=== PATIENT | female | born 2000 ===

== ENCOUNTER 2023-08-01 13:16 | Emergency (ER) | payer MEDICAID, SELFPAY ==
[2023-08-01 13:27] VITALS: BP 118/78; PULSE 72; RESP 16; TEMP 36.3; O2SAT 98; BMI 36.2
--- NOTE | 2023-08-01 13:29 | ED_ITS ---
HPI - General Adult General Chief complaint: Abdominal Pain Stated complaint: Abdominal pain Time Seen by Provider: 08/01/23 16:40 Source: patient, RN notes reviewed and old records reviewed Mode of arrival: ambulatory History of Present Illness HPI narrative: 22-year-old female with past medical history appendectomy presenting to the ED complaining of lower abdominal pain x3 days. Denies fever, chills, nausea, vomiting, diarrhea, dysuria/hematuria, vaginal bleeding/discharge Related Data Allergies Allergy/AdvReac Type Severity Reaction Status Date / Time No Known Allergies Allergy Verified 08/01/23 13:26 Review of Systems 2 Review of Systems: Constitutional: No Fever, No Chills ENT/Mouth: No Ear Pain, No Nasal Congestion, No sore throat, No Rhinorrhea, No Swallowing Difficulty Cardiovascular: No Chest Pain, No SOB Respiratory: No Cough, No Sputum, No Wheezing Gastrointestinal: No Nausea, No Vomiting, No Diarrhea, No Constipation, +Abdominal pain Genitourinary: No Dysuria, No Urinary Frequency, No Hematuria, No Flank Pain Musculoskeletal: No joint pain, No Myalgias Skin: No Skin Lesions, No rash Neuro: No Weakness Yes all other systems are reviewed and are negative Constitutional: Constitutional: Reports as per [facility] Past Medical History Attestation statement: The following information was validated with the patient. Source: old records reviewed Social History Social History Advance Directives: No Advance Directives Information Provided: No Physical Exam ED Vital Signs: Vital Signs - 24 hr 08/01/23 13:27 Temperature 97.4 F Pulse Rate 72 Respiratory Rate 16 Blood Pressure 118/78 Pulse Oximetry 98 Oxygen Delivery Method Room Air BMI result Body Mass Index 36.2 Const General: cooperative, healthy appearing and no acute distress Orientation/consciousness: patient oriented x3 Limitations: no limitations HENMT Head: Yes normal to inspection and Yes atraumatic Ears: hearing grossly normal bilaterally General nose exam: Normal external nose present Face and sinus: Yes normal facial exam Eyes General: appearance normal, both eyes and all related structures EOM: EOMs intact bilaterally Neck Neck: Yes normal visual inspection and Yes no meningeal signs Resp Effort & Inspection: normal respiratory effort and no respiratory distress Cardio Rate: regular rate GI Inspection: Yes normal to inspection Palpation (GI): Soft to palpation, nontender, no guarding and not rigid General: Yes no CVA tenderness Back/Spine/Pelvis Back: no CVA tenderness Skin Rashes: no rashes Wounds: no wounds Neuro General: patient oriented x3, tone normal and no meningeal signs Cranial nerves: Yes CN's II-XII intact bilaterally Gait exam (Neuro): Normal gait present Extrem General: Yes normal to inspection Course Course Course Narrative: RME- 22 year old female presents for evaluation of lower abdominal pain for the last 3 days. Plan for labs, UA and -[id number]--no leukocytosis. Labs otherwise reassuring. negative. -UA contaminated, will hold on antibiotic initiation at this time until culture results. Results discussed with patient including worrisome signs and symptoms and strict return precautions, recommended GI/PCP follow-up, discussed when to return to the emergency department. They verbalized understanding and feel safe for discharge at this time. Medical Decision Making Medical Decision Making [facility] Narrative: 22-year-old female with past medical history appendectomy presenting to the ED complaining of lower abdominal pain x3 days. On exam vital signs stable, NAD, nontoxic appearing, abdomen soft/nontender. Concern for UTI vs colitis. Lower suspicion for acute diverticulitis without tenderness on exam. Unlikely TOA/ovarian torsion. Rule out . Low suspicion for pancreatitis/cholecystitis/lithiasis Plan: Labs, UA Differential Diagnosis Differential Diagnoses: The differential diagnosis associated with the presentation includes As above Lab Data [facility] Lab Attestation statement: I reviewed the patient's lab results. 08/01/23 13:40 08/01/23 13:40 Labs: Lab Results 08/01/23 08/01/23 Range/Units 13:40 16:59 WBC 7.3 (4.8-10.8) X10*3/uL RBC 4.49 (4.20-5.50) X10*6/uL Hgb 12.6 (12.0-16.0) g/dl Hct 38.6 (37.0-47.0) % MCV 86.0 (80.0-98.0) fL MCH 28.1 (27.0-33.0) pg MCHC 32.6 (31.0-35.0) g/dl RDW 14.1 (11.0-16.0) % Plt Count 307 (160-400) X10*3/uL MPV 8.6 L (9.4-12.3) fL Immature Gran % (Auto) 0.3 (0.0-0.4) % Neut % (Auto) 59.7 (45-73) % Lymph % (Auto) 32.9 (20-40) % [place] % (Auto) 4.7 (2-11) % Eos % (Auto) 2.3 (0-4) % Baso % (Auto) 0.1 (0-2) % Lymph # (Auto) 2.4 (1.2-4.9) X10*3/uL [place] # (Auto) 0.3 (0.1-1.2) X10*3/uL Eos # (Auto) 0.2 (0.0-0.4) X10*3/uL Baso # (Auto) 0.0 (0.0-0.2) X10*3/uL Abs Immat Gran (auto) 0.02 (0.00-0.03) X10*3/uL Absolute Neuts (auto) 4.4 (2.0-8.3) x10*3/uL Absolute Nucleated RBC 0.000 (0.0-0.012) X10*3/uL Nucleated RBC % (auto) 0.0 (0.0-0.2) /100WBC Sodium 139 (135-145) mmol/L Potassium 3.7 (3.3-5.1) mmol/L Chloride 108 (96-108) mmol/L Carbon Dioxide 26 (22-29) mmol/L Anion Gap 9 L (12-20) BUN 8 L (9-16) mg/dL Creatinine 0.67 (0.5-1.4) mg/dL Estim Creat Clear Calc 124.4 Estimated GFR > 60 Random Glucose 88 (60-115) mg/dL Calcium 8.7 (8.4-10.2) mg/dL Magnesium 2.0 (1.6-2.6) mg/dL Total Bilirubin 0.3 (0.0-1.0) mg/dL Direct Bilirubin 0.1 (0.0-0.5) mg/dL AST 14 (5-31) U/L ALT 13 (0-31) U/L Alkaline Phosphatase 77 (39-117) U/L Total Protein 7.7 (6.5-8.0) g/dL Albumin 4.0 (3.5-5.0) g/dL Lipase 14 (8-78) U/L Beta HCG, Quant < 2 mIU/mL Urine Color Yellow Urine Appearance Cloudy Urine pH 8.0 (5.0-9.0) Ur Specific [place] 1.025 (1.005-1.025) Urine Protein Negative (Neg-Trace) mg/dL Urine Glucose (UA) Negative (Negative) mg/dL Urine Ketones Negative (Negative) mg/dL Urine Blood Negative (Negative) Urine Nitrite Negative (Negative) Ur Leukocyte Esterase Moderate (2+) H (Negative) Urine RBC 0-2 (0-2) /HPF Urine WBC 6-10 H (0-5) /HPF Ur Squamous Epith Cells >20 (0-2) /HPF Urine Bacteria 4+ (None Seen) Hyaline Casts 0-2 (0-2) /LPF External Record Review External record reviewed: Inpatient record, Office record, Outpatient record, Prior outpatient labs, Prior outpatient radiology, Primary care record and Outside ED record Tests considered The following testing was considered but not selected: As above Prescription Management I considered prescription management with: Pain Medication Discharge Plan Discharge Clinical Impression: Lower abdominal pain Patient Disposition: Home, Self-Care Instructions: Abdominal Pain (ED) Additional Instructions: Your blood work and urine are reassuring. Please follow-up with your doctor as well as Gastroenterology If symptoms persist or worsen her pain is unbearable, you have nausea/vomiting or fever return to the ED [place] an?lisis de reji y orina son tranquilizadores. Por favor zoila seguimiento con la m?dico as? elise con Gastroenterolog?a. Si los s?ntomas persisten o empeoran, la dolor es insoportable, tiene n?useas/v?mitos o fiebre, regrese al servicio de urgencias. Referrals: [facility] [place] [facility] [Provider Group] [facility] [place] [facility] [place] Group[place] [facility] [place] [facility] [place]Provider Group] Interventions: ED Discharge Assessment Last Done: 08/01/23 17:39 Discharge Date/Time: 08/01/23 17:39 Print Language: Liberian
[2023-08-01 13:45] LABS: MANUAL DIFF FLAG NO
[2023-08-01 13:53] LABS: Basophils Percent Auto 0.1 % (0-2); Eosinophils Absolute Auto 0.2 X10*3/uL (0.0-0.4); Eosinophils Percent Auto 2.3 % (0-4); Hematocrit 38.6 % (37.0-47.0); Hemoglobin 12.6 g/dl (12.0-16.0); Imm Gran Abs Auto 0.02 X10*3/uL (0.00-0.03); Imm Gran Pct Auto 0.3 % (0.0-0.4); Lymphocytes Absolute Auto 2.4 X10*3/uL (1.2-4.9); Lymphocytes Percent Auto 32.9 % (20-40); Mean Corpuscular HGB Conc 32.6 g/dl (31.0-35.0); Mean Corpuscular Hemoglobin 28.1 pg (27.0-33.0); Mean Platelet Volume 8.6 fL (9.4-12.3); Monocytes Absolute Auto 0.3 X10*3/uL (0.1-1.2); Monocytes Percent Auto 4.7 % (2-11); Neutrophils Absolute Auto 4.4 x10*3/uL (2.0-8.3); Neutrophils Percent Auto 59.7 % (45-73); Platelet Count 307 X10*3/uL (160-400); Red Blood Count 4.49 X10*6/uL (4.20-5.50); Red Cell Distribution Width 14.1 % (11.0-16.0); White Blood Count 7.3 X10*3/uL (4.8-10.8)
[2023-08-01 13:57] LABS: Anion Gap 9 (12-20); Blood Urea Nitrogen 8 mg/dL (9-16); Calcium 8.7 mg/dL (8.4-10.2); Carbon Dioxide 26 mmol/L (22-29); Chloride 108 mmol/L (96-108); Creatinine Clr Calc Pharmacy 124.4; Estimated Glomerular Filt Rate > 60; Glucose Random 88 mg/dL (60-115); Potassium 3.7 mmol/L (3.3-5.1); Sodium 139 mmol/L (135-145)
[2023-08-01 14:06] LABS: HCG Quantitative < 2 mIU/mL
[2023-08-01 17:01] LABS: Alanine Aminotransferase 13 U/L (0-31); Alkaline Phosphatase 77 U/L (39-117); Aspartate Amino Transferase 14 U/L (5-31); Bilirubin Direct 0.1 mg/dL (0.0-0.5); Bilirubin Total 0.3 mg/dL (0.0-1.0); Lipase 14 U/L (8-78); Total Protein 7.7 g/dL (6.5-8.0)
[2023-08-01 17:10] LABS: Appearance Urine Cloudy; Color Urine Yellow; Glucose Urine UA Negative (Negative); Leukocyte Esterase Urine Moderate (2+) (Negative); Nitrite Urine Negative (Negative); Specific Gravity - Urine 1.025 (1.005-1.025); UMIC TRIGGER UACC YES; Urine Blood Negative (Negative); Urine Ketones Negative (Negative); Urine Protein Negative (Neg-Trace)
[2023-08-01 17:16] LABS: Bacteria Urine 4+ (None Seen); Hyaline Casts Urine 0-2 /LPF (0-2); RBC Urine 0-2 /HPF (0-2); Squamous Epithelial Cell Urine >20 /HPF (0-2); UACC Culture Trigger YES
== END 2023-08-01 17:39 | disposition home or self-care (01) ==
PROVIDERS: Physician Assistant; Emergency Provider Emergency Medicine Emergency Medical Services
DX: R10.30 Lower abdominal pain, unspecified (principal)
CPT/HCPCS: 36415; 80048; 80076; 81001; 83690; 83735; 84702; 85025; 87086; 99283; 99284

== ENCOUNTER 2023-08-10 17:12 | Emergency (ER) | payer MEDICAID, OTHER, SELFPAY ==
[2023-08-10 17:15] VITALS: BP 103/61; PULSE 77; RESP 18; TEMP 35.9; O2SAT 96; BMI 30.9
--- NOTE | 2023-08-10 17:17 | ED_ITS ---
HPI - Allergic Reaction General Chief complaint: Allergic Reaction Stated complaint: ?Allergic reaction Time Seen by Provider: 08/10/23 17:27 History of Present Illness HPI narrative: The patient is an ordinarily healthy 22-year-old who says that this morning she had a sense of itchiness to her face and also to her extremities to some degree. Over the course of the day she is developed increasing swelling to her lips and the skin of her face. Some mild shortness of breath. She finally came to the emergency room because of the degree of lip swelling. She has never had anything like this before. She has on no prescription medications. 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 Yesterday she was cleaning somebody's house who does not like any chemicals to be used. She was not exposed to any substances that she is not normally used to working with. She denies any new household products. She has never had any kind of reaction to anything like this before. Related Data Previous Rx's Medication Instructions Recorded cetirizine 10 mg tablet 10 mg PO DAILY PRN allergy 08/10/23 symptoms #7 tabs prednisone 20 mg tablet 40 mg (2 x 20 mg) PO DAILY 2 days 08/10/23 #4 tabs Allergies Allergy/AdvReac Type Severity Reaction Status Date / Time No Known Allergies Allergy Verified 08/10/23 17:17 Review of Systems Review of Systems: Yes all other systems are reviewed and are negative [facility] Social History Social History Smoked in Last 30 Days: No Use of substances other than those prescribed or required for medical reasons: No Advance Directives: No Advance Directives Information Provided: No Physical Exam ED Vital Signs: Vital Signs - 24 hr 08/10/23 17:15 08/10/23 18:00 08/10/23 18:15 Temperature 96.6 F L 98.7 F Pulse Rate 77 70 Respiratory Rate 18 Blood Pressure 103/61 125/72 Pulse Oximetry 96 Oxygen Delivery Method Room Air 08/10/23 19:10 Temperature 98.5 F Pulse Rate 77 Respiratory Rate 16 Blood Pressure 140/84 H Pulse Oximetry 96 Oxygen Delivery Method Room Air BMI result Body Mass Index 30.9 Const Other: The patient is awake and alert. She has obvious significant edema to both lips and some mild generalized facial edema. She does not seem in any distress or difficulty breathing. HENMT Other: Significant swelling to both the upper and lower lips. Some mild generalized facial swelling. No significant erythema or hives. No intraoral swelling. The posterior pharynx is normal. Eyes Other: The eyelids are not swollen. Pupils are round equal. Conjunctivae are clear. Neck Other: No stridor Resp Effort & Inspection: normal respiratory effort Auscultation: clear to auscultation bilaterally Cardio Rate: regular rate Rhythm: regular rhythm Heart sounds: S1 normal heart sound present and S2 normal heart sound present Skin Other: There is some mild generalized swelling to the lower face. The lips are significantly edematous. The lips are symmetrical. Some minimal hives to the right hand. Neuro Other: The patient is awake, alert, appropriate, grossly neurologically intact. Extrem Other: Very mild urticaria to the right arm. No significant soft tissue swelling to the extremities. Course Course Course Narrative: This is an RME: Additional HPI, ROS, PE not included below will be deferred to primary provider. Patient is a 22 old female who presents emergency department with concern for allergic reaction. She states that she awoke this morning with swelling to her lips and an itching sensation that is progressively worsened throughout the day. No relief with application of ice. Has shortness of breath with this. Denies any known allergies, foods, facial products, injection. She did not take any medications at home. Exam: Angioedema, managing secretions, speaking clear full sentences, no respiratory distress. Onset earlier today with progressive worsening, spoke with admission discharge rn, patient moved to room ED 2. Medications Administered Discontinued Medications Generic Name Dose Route Start Last Admin Trade Name Bar PRN Reason Stop Dose Admin Diphenhydramine HCl 50 mg 08/10/23 17:22 08/10/23 17:29 Diphenhydramine Hcl 50 Mg/Ml Vial IVPUSH 08/10/23 17:23 Not Given ONCE ONE Diphenhydramine HCl 50 mg 08/10/23 17:29 08/10/23 17:35 Diphenhydramine Hcl 25 Mg Capsule PO 08/10/23 17:30 50 mg ONCE ONE Administration Epinephrine 0.3 mg 08/10/23 18:04 08/10/23 18:15 Epinephrine 1 Mg/Ml Vial IM 08/10/23 18:05 0.3 mg STAT STA Administration Famotidine 20 mg 08/10/23 17:22 08/10/23 17:29 Famotidine/Pf 20 Mg/2 Ml Vial IVPUSH 08/10/23 17:23 Not Given ONCE ONE Famotidine 40 mg 08/10/23 17:29 08/10/23 17:35 Famotidine 20 Mg Tablet PO 08/10/23 17:30 40 mg ONCE ONE Administration Sodium Chloride 1,000 mls @ 999 mls/hr 08/10/23 17:30 08/10/23 17:33 Ns IV 08/10/23 18:30 Not Given .Q1H1M OZIEL Loratadine 10 mg 08/10/23 20:02 08/10/23 20:27 Loratadine 10 Mg Tablet PO 08/10/23 20:03 10 mg ONCE ONE Administration Methylprednisolone Sodium Succinate 125 mg 08/10/23 17:22 08/10/23 17:28 Methylprednisolone Sod Succ 125 Mg/2 Ml Vial IVPUSH 08/10/23 17:23 Not Given ONCE ONE Prednisone 60 mg 08/10/23 17:29 08/10/23 17:35 Prednisone 20 Mg Tablet PO 08/10/23 17:30 60 mg ONCE ONE Administration Medical Decision Making Medical Decision Making MDM Narrative: The patient presents with what seems to be an allergic reaction characterized primarily by facial edema and itchiness. Her lips are quite swollen. She was treated oral diphenhydramine, famotidine, prednisone, and IM epinephrine. She was observed. She felt better. The patient has no history of similar reactions in the past. Patient can not think of any new exposure that might have predisposed her to an allergic reaction. The patient has [employer] but she does not have a PCP. She has tried to get into the [facility] in the past but there was a long wait. Given the patient's improvement I think she may be discharged. I will prescribe 2 additional days of prednisone 40 mg daily and also a prescription for cetirizine. She should continue trying to get a PCP. She should return if worse. Lab Data Labs: Lab Results 08/10/23 Range/Units 17:35 Beta HCG, Quant < 2 mIU/mL Discharge Plan Discharge Clinical Impression: Allergic reaction Patient Disposition: Home, Self-Care Instructions: General Allergic Reaction (ED) Additional Instructions: Please take the prednisone prescribed daily for the next 2 days. Next dose tomorrow. You may also take cetirizine (brand name Zyrtec) once a day as needed. I have sent a prescription for this medication. If the pharmacy did not fill this prescription you may buy it [id number]. Please continue to work trying to get a primary care doctor at the [facility]. Return to the emergency room if significantly worse.. Prescriptions: New prednisone 20 mg tablet 40 mg PO DAILY 2 Days Qty: 4 0RF cetirizine 10 mg tablet 10 mg PO DAILY PRN (Reason: allergy symptoms) Qty: 7 0RF Referrals: [facility] [Provider Group] (Need for primary care, allergic reaction) Interventions: ED Discharge Assessment Last Done: 08/10/23 20:27 Discharge Date/Time: 08/10/23 20:28
[2023-08-10] MEDS: diphenhydrAMINE HCL 25 MG CAPSULE 50 MG PO (17:35)
[2023-08-10] MEDS: Famotidine 20 MG TABLET 40 MG PO (17:35)
[2023-08-10] MEDS: predniSONE 20 MG TABLET 60 MG PO (17:35)
[2023-08-10 18:00] VITALS: TEMP 37.1
[2023-08-10 18:01] LABS: HCG Quantitative < 2 mIU/mL
[2023-08-10 18:15] VITALS: BP 125/72; PULSE 70
[2023-08-10] MEDS: EPINEPHrine 1 MG/ML VIAL 0.3 MG IM (18:15)
--- NOTE | 2023-08-10 18:18 | PC.NURSE ---
Lips remains swollen, provider aware. medicated per mar
[2023-08-10 19:10] VITALS: BP 140/84; PULSE 77; RESP 16; TEMP 36.9; O2SAT 96
[2023-08-10] MEDS: Loratadine 10 MG TABLET PO (20:27)
== END 2023-08-10 20:28 | disposition home or self-care (01) ==
PROVIDERS: Emergency Provider Emergency Medicine
DX: T78.40XA Allergy, unspecified, initial encounter (principal); L50.9 Urticaria, unspecified; X58.XXXA Exposure to other specified factors, initial encounter; R06.02 Shortness of breath
CPT/HCPCS: 36415; 84702; 96372; 99283; 99284; J0171

== ENCOUNTER 2023-11-26 18:58 | Emergency (ER) | payer MEDICAID, OTHER, SELFPAY ==
[2023-11-26 19:23] VITALS: BP 103/70; PULSE 81; RESP 20; TEMP 36.6; O2SAT 98; BMI 30.7
--- NOTE | 2023-11-26 19:25 | ED.GENADULT ---
HPI - General Adult General Chief complaint: Abdominal Pain Stated complaint: abd Time Seen by Provider: 11/26/23 22:37 Source: patient Mode of arrival: ambulatory Limitations: no limitations History of Present Illness ED Provider: donis VELEZ narrative: Patient will complaining of diffuse abdominal cramps nausea vomiting and diarrhea since yesterday evening had seafood prior to the had about 10 times watery stool and same number of vomiting no other family member sick no fever no chills Related Data Previous Rx's ?Medication ?Instructions ?Recorded cetirizine 10 mg tablet 10 mg PO DAILY PRN allergy 08/10/23 symptoms #7 tabs prednisone 20 mg tablet 40 mg (2 x 20 mg) PO DAILY 2 days 08/10/23 #4 tabs loperamide 2 mg tablet (Imodium 2 mg PO Q6H PRN loose stool #14 11/26/23 A-D) tabs ondansetron 4 mg disintegrating 4 mg PO Q6-8H PRN nausea and 11/26/23 tablet vomiting #10 tabs Allergies Allergy/AdvReac Type Severity Reaction Status Date / Time No Known Allergies Allergy Verified 11/26/23 19:25 Review of Systems Review of Systems: Yes all other systems are reviewed and are negative PMFSH Social History Social History Advance Directives: No Advance Directives Information Provided: No Do you have a plan to hurt others: No Plan Physical Exam ED Vital Signs: Vital Signs - 24 hr 11/26/23 19:23 11/26/23 23:15 Temperature 97.8 F 99.2 F Pulse Rate 81 75 Respiratory Rate 20 17 Blood Pressure 103/70 111/62 Pulse Oximetry 98 98 Oxygen Delivery Method Room Air Room Air BMI result Body Mass Index 30.7 Appearance: Alert. Oriented X3. No acute distress. Eyes: No pallor or icterus ENT: Pharynx normal. Oral Mucosa moist Neck: Normal inspection. Neck supple. CVS: Normal heart rate and rhythm. Pulses normal. Respiratory: No respiratory distress. Equal air entry bilateral, no wheezing/rales/rhonchi Abdomen: Soft diffuse tenderness no focal tenderness or guarding Bowel sounds are present, no mass palpable, no CVA tenderness Skin: Skin warm and dry. Normal skin color. Normal skin turgor. Extremities: No lower extremity edema. No calf tenderness Neuro: Oriented X 3. No motor deficit. Course Course Course Narrative: RME performed by Samantha Piña PA-C. Patient is a 23 year old assigned female at presenting to the emergency department with abdominal pain. Patient states she has been having epigastric pain, nausea, and vomiting. Detailed physical exam and review of systems are deferred to the placement manager. Labs and swabs ordered. Patient placed back in the waiting room pending room availability and results. Medical Decision Making Medical Decision Making MDM Narrative: Patient with nausea vomiting diarrhea with diffuse abdominal pain labs are stable likely gastroenteritis viral/food poisoning discharge patient on symptomatic treatment Differential Diagnosis Differential Diagnoses: The differential diagnosis associated with the presentation includes Gastroenteritis/cholecystitis Lab Data [facility] Lab Attestation statement: I reviewed the patient's lab results. 11/26/23 19:40 11/26/23 19:40 Labs: Lab Results 11/26/23 11/26/23 Range/Units 19:38 19:40 WBC 8.1 (4.8-10.8) X10*3/uL RBC 4.12 L (4.20-5.50) X10*6/uL Hgb 12.1 (12.0-16.0) g/dl Hct 35.7 L (37.0-47.0) % MCV 86.7 (80.0-98.0) fL MCH 29.4 (27.0-33.0) pg MCHC 33.9 (31.0-35.0) g/dl RDW 13.5 (11.0-16.0) % Plt Count 270 (160-400) X10*3/uL MPV 8.9 L (9.4-12.3) fL Immature Gran % (Auto) 0.2 (0.0-0.4) % Neut % (Auto) 73.4 H (45-73) % Lymph % (Auto) 20.5 (20-40) % [place] % (Auto) 5.1 (2-11) % Eos % (Auto) 0.7 (0-4) % Baso % (Auto) 0.1 (0-2) % Lymph # (Auto) 1.7 (1.2-4.9) X10*3/uL [place] # (Auto) 0.4 (0.1-1.2) X10*3/uL Eos # (Auto) 0.1 (0.0-0.4) X10*3/uL Baso # (Auto) 0.0 (0.0-0.2) X10*3/uL Abs Immat Gran (auto) 0.02 (0.00-0.03) X10*3/uL Absolute Neuts (auto) 5.9 (2.0-8.3) x10*3/uL Absolute Nucleated RBC 0.000 (0.0-0.012) X10*3/uL Nucleated RBC % (auto) 0.0 (0.0-0.2) /100WBC Sodium 135 (135-145) mmol/L Potassium 3.4 (3.3-5.1) mmol/L Chloride 110 H (96-108) mmol/L Carbon Dioxide 18 L (22-29) mmol/L Anion Gap 10 L (12-20) BUN 5 L (9-16) mg/dL Creatinine 0.58 (0.5-1.4) mg/dL Estim Creat Clear Calc 158.4 Estimated GFR > 60 Random Glucose 95 (60-115) mg/dL Calcium 8.7 (8.4-10.2) mg/dL Magnesium 1.8 (1.6-2.6) mg/dL Total Bilirubin 0.5 (0.0-1.0) mg/dL AST 20 (5-31) U/L ALT 15 (0-31) U/L Alkaline Phosphatase 72 (39-117) U/L Total Protein 7.4 (6.5-8.0) g/dL Albumin 3.9 (3.5-5.0) g/dL Urine Color Yellow Urine Appearance Cloudy Urine pH 7.5 (5.0-9.0) Ur Specific [place] 1.010 (1.005-1.025) Urine Protein Negative (Neg-Trace) mg/dL Urine Glucose (UA) Negative (Negative) mg/dL Urine Ketones Negative (Negative) mg/dL Urine Blood Negative (Negative) Urine Nitrite Negative (Negative) Ur Leukocyte Esterase Small (1+) H (Negative) Urine RBC 0-2 (0-2) /HPF Urine WBC 11-20 H (0-5) /HPF Ur Squamous Epith Cells 11-20 (0-2) /HPF Urine Bacteria 1+ (None Seen) Hyaline Casts 0-2 (0-2) /LPF Influenza Type A (PCR) NEGATIVE (Negative) Influenza Type B (PCR) NEGATIVE (Negative) RSV RNA Qual (PCR) NEGATIVE (Negative) SARS-CoV-2 RNA (RT-PCR) NEGATIVE (Negative) Discharge Plan Discharge Clinical Impression: Gastroenteritis Patient Disposition: Home, Self-Care Instructions: Gastroenteritis (ED) Additional Instructions: Drink plenty of fluids Medication for nausea as prescribed Medication for diarrhea as prescribed Follow with your PCP if not better Prescriptions: New loperamide [Imodium A-D] 2 mg tablet 2 mg PO Q6H PRN (Reason: loose stool) Qty: 14 0RF ondansetron 4 mg tablet,disintegrating 4 mg PO Q6-8H PRN (Reason: nausea and vomiting) Qty: 10 0RF No Action prednisone 20 mg tablet 40 mg PO DAILY 2 Days Qty: 4 0RF cetirizine 10 mg tablet 10 mg PO DAILY PRN (Reason: allergy symptoms) Qty: 7 0RF Print Language: Citizen [place]
--- NOTE | 2023-11-26 19:42 | MHC.EDTECH ---
PATIENT BLOOD DRAWN ,URINE SAMPLE COLLECTED AND RSV/COVID SWAB ALL SENT TO LAB .
[2023-11-26 19:45] LABS: MANUAL DIFF FLAG NO
[2023-11-26 19:46] LABS: Basophils Percent Auto 0.1 % (0-2); Eosinophils Absolute Auto 0.1 X10*3/uL (0.0-0.4); Eosinophils Percent Auto 0.7 % (0-4); Hematocrit 35.7 % (37.0-47.0); Hemoglobin 12.1 g/dl (12.0-16.0); Imm Gran Abs Auto 0.02 X10*3/uL (0.00-0.03); Imm Gran Pct Auto 0.2 % (0.0-0.4); Lymphocytes Absolute Auto 1.7 X10*3/uL (1.2-4.9); Lymphocytes Percent Auto 20.5 % (20-40); Mean Corpuscular HGB Conc 33.9 g/dl (31.0-35.0); Mean Corpuscular Hemoglobin 29.4 pg (27.0-33.0); Mean Corpuscular Volume 86.7 fL (80.0-98.0); Mean Platelet Volume 8.9 fL (9.4-12.3); Monocytes Absolute Auto 0.4 X10*3/uL (0.1-1.2); Monocytes Percent Auto 5.1 % (2-11); Neutrophils Absolute Auto 5.9 x10*3/uL (2.0-8.3); Neutrophils Percent Auto 73.4 % (45-73); Platelet Count 270 X10*3/uL (160-400); Red Blood Count 4.12 X10*6/uL (4.20-5.50); Red Cell Distribution Width 13.5 % (11.0-16.0); White Blood Count 8.1 X10*3/uL (4.8-10.8)
[2023-11-26 19:47] LABS: Appearance Urine Cloudy; Color Urine Yellow; Glucose Urine UA Negative (Negative); Leukocyte Esterase Urine Small (1+) (Negative); Nitrite Urine Negative (Negative); PH 7.5 (5.0-9.0); UMIC TRIGGER UACC YES; Urine Blood Negative (Negative); Urine Ketones Negative (Negative); Urine Protein Negative (Neg-Trace)
[2023-11-26 19:55] LABS: Bacteria Urine 1+ (None Seen); Hyaline Casts Urine 0-2 /LPF (0-2); RBC Urine 0-2 /HPF (0-2); UACC Culture Trigger YES
[2023-11-26 20:06] LABS: Alanine Aminotransferase 15 U/L (0-31); Albumin Level 3.9 g/dL (3.5-5.0); Alkaline Phosphatase 72 U/L (39-117); Anion Gap 10 (12-20); Aspartate Amino Transferase 20 U/L (5-31); Bilirubin Total 0.5 mg/dL (0.0-1.0); Blood Urea Nitrogen 5 mg/dL (9-16); Calcium 8.7 mg/dL (8.4-10.2); Carbon Dioxide 18 mmol/L (22-29); Chloride 110 mmol/L (96-108); Creatinine Clr Calc Pharmacy 158.4; Estimated Glomerular Filt Rate > 60; Glucose Random 95 mg/dL (60-115); Magnesium 1.8 mg/dL (1.6-2.6); Potassium 3.4 mmol/L (3.3-5.1); Sodium 135 mmol/L (135-145); Total Protein 7.4 g/dL (6.5-8.0)
[2023-11-26 20:29] LABS: Influenza A PCR NEGATIVE (Negative); Influenza B PCR NEGATIVE (Negative); Resp Syncy Virus RNA Qual PCR NEGATIVE (Negative); SARS COV2 PCR INHOUSE NEGATIVE (Negative)
[2023-11-26 23:15] VITALS: BP 111/62; PULSE 75; RESP 17; TEMP 37.3; O2SAT 98
[2023-11-27] MEDS: Loperamide HCl 2 MG CAPSULE 4 MG PO (00:12)
[2023-11-27] MEDS: Ondansetron ODT 4 MG TAB.RAPDIS TRANSLINGU (00:13)
[2023-11-27] MEDS: Dicyclomine HCl 10 MG CAPSULE 20 MG PO (00:13)
[2023-11-27 00:34] VITALS: BP 112/62; PULSE 73; RESP 20; TEMP 36.9; O2SAT 98
== END 2023-11-27 00:30 | disposition home or self-care (01) ==
PROVIDERS: Physician Assistant Medical; Emergency Provider Internal Medicine
DX: K52.9 Noninfective gastroenteritis and colitis, unspecified (principal); R11.2 Nausea with vomiting, unspecified; R10.9 Unspecified abdominal pain; Z03.818 Encounter for observation for suspected exposure to other biological agents ruled out
CPT/HCPCS: 0241U; 80053; 81001; 83735; 85025; 87086; 99283; 99284